=== PATIENT | female | born 1975 | race Caucasian/White ===

== ENCOUNTER 2018-07-16 10:20 | Emergency (ER) | payer MEDICAID ==
[~2018-07-16] VITALS: Ht 162.6 cm; Wt 56.4 kg
[2018-07-16 10:22] VITALS: BP 116/60; PULSE 101; RESP 18; Ht 162.6 cm; Wt 56.4 kg
--- NOTE | 2018-07-16 11:02 | ERD ---
ER Documentation Chief Complaint Chief Complaint fever x 2 days HPI 43-year-old female in her 6 weeks of presents due to complaint of fever and cough for 2 days. Cough is intermittent and nonproductive. States that she took TheraFlu last night but has not taken any treatments today. Denies abdominal pain, dysuria, chest pain, leg swelling or pain, headache, photophobia, rashes, shortness of breath, wheezing, dyspnea, hemoptysis. Denies past medical history. Denies allergies. Denies medications. Denies surgeries. Denies alcohol, tobacco, drug use. ROS All systems reviewed and are negative except as per history of present illness. Medications Home Meds Active Scripts Acetaminophen* (Tylophen*) 500 Mg Capsule, 1 CAP PO Q6H PRN for PAIN AND OR ELEVATED TEMP, #20 CAP Prov:DANNY PAHN 07/16/18 Oseltamivir Phosphate* (Tamiflu*) 75 Mg Capsule, 75 MG PO BID for influenza for 5 Days, CAP Prov:DANNY PHAN 07/16/18 PMhx/Soc Medical and Surgical Hx: pt denies Medical Hx, pt denies Surgical Hx Hx Alcohol Use: No Hx Substance Use: No Hx Tobacco Use: No Smoking Status: Never smoker FmHx Family History: No diabetes, No coronary disease, No other Physical Exam Vitals Vital Signs Date Temp Pulse Resp B/P (MAP) Pulse Ox O2 O2 Flow FiO2 Time Delivery Rate 07/16/18 100.2 101 18 116/60 100 10:22 (78) Physical Exam Const: No acute distress Head: Atraumatic Eyes: Normal Conjunctiva ENT: Normal External Ears, Nose and Mouth. Tonsils are nonerythematous or edematous without exudates bilaterally. Neck: Full range of motion. No meningismus. Resp: Clear to auscultation bilaterally Cardio: Regular rate and rhythm, no murmurs Abd: Soft, non tender, non distended. Normal bowel sounds Skin: No petechiae or rashes Back: No midline or flank tenderness Ext: No cyanosis, or edema. No erythema or tenderness to palpation lower extremities. Neur: Awake and alert Psych: Normal Mood and Affect Result Diagram: 07/16/18 1110 Results 24 hrs Laboratory Tests Test 07/16/18 11:10 07/16/18 11:14 White Blood Count 5.6 10^3/ul Red Blood Count 4.55 10^6/ul Hemoglobin 11.7 g/dl Hematocrit 37.0 % Mean Corpuscular Volume 81.3 fl Mean Corpuscular Hemoglobin 25.7 pg Mean Corpuscular Hemoglobin Concent 31.6 g/dl Red Cell Distribution Width 14.9 % Platelet Count 243 10^3/UL Mean Platelet Volume 10.0 fl Immature Granulocytes % 0.400 % Neutrophils % 79.4 % Lymphocytes % 8.9 % Monocytes % 11.1 % Eosinophils % 0.0 % Basophils % 0.2 % Nucleated Red Blood Cells % 0.0 /100WBC Immature Granulocytes # 0.020 10^3/ul Neutrophils # 4.5 10^3/ul Lymphocytes # 0.5 10^3/ul Monocytes # 0.6 10^3/ul Eosinophils # 0.0 10^3/ul Basophils # 0.0 10^3/ul Nucleated Red Blood Cells # 0.0 10^3/ul Urine Color YELLOW Urine Clarity SLIGHTLY CLOUDY Urine pH 5.0 Urine Specific [place] 1.012 Urine Ketones NEGATIVE mg/dL Urine Nitrite NEGATIVE mg/dL Urine Bilirubin NEGATIVE mg/dL Urine Urobilinogen NEGATIVE mg/dL Urine Leukocyte Esterase NEGATIVE Jimmy/ul Urine Microscopic RBC 3 /HPF Urine Microscopic WBC 2 /HPF Urine Squamous Epithelial Cells FEW /HPF Urine Bacteria FEW /HPF Urine Hemoglobin 2+ mg/dL Urine Glucose NEGATIVE mg/dL Urine Total Protein NEGATIVE mg/dl POC Beta HCG, Qualitative POSITIVE Procedures/MDM 43-year-old female in her 6 weeks of presents due to complaint of fever 2 days. Cough is intermittent and nonproductive. States that she took TheraFlu last night but has not taken any treatments today. Denies abdominal pain, dysuria, chest pain, leg swelling or pain, shortness of breath, wheezing, dyspnea, hemoptysis. CBC was performed and showed no acute infection. Influenza test was positive. I have low suspicion for tubercolosis, pneumonia, pleural effusion, acute heart failure, foreign body aspiration, pulmonary embolism, pneumothorax, sepsis, meningitis, or other emergent etiology. Patients O2 sat is normal and is not having difficulty breathing, therefore patient is fit for discharge. Patient discharged with rx for tamiflu and tylenol and advised to follow up with PMD. Patient discharged with strict ER precautions. All questions answered at discharge. Departure Diagnosis: Primary Impression: Influenza A Condition: Stable DANNY PHAN Jul 16, 2018 11:02
[2018-07-16] MEDS ORDERED: OSEL75CA23 PO (11:36)
[2018-07-16] MEDS ORDERED: ACET500C5 PO (11:37)
== END 2018-07-16 11:44 | disposition home or self-care (01) ==
LOC: FTE 10:20
DX: O99.511 Diseases of the respiratory system complicating pregnancy, first trimester (principal); J10.1 Influenza due to other identified influenza virus with other respiratory manifestations; R50.9 Fever, unspecified; Z3A.01 Less than 8 weeks gestation of pregnancy
CPT/HCPCS: 36415; 81001; 81025; 85025; 87400; Z7502; 99283

== ENCOUNTER 2019-01-29 11:17 | Emergency (ER) | payer MEDICAID ==
[~2019-01-29] VITALS: Ht 162.6 cm; Wt 71.0 kg
[~2019-01-29 11:17] MED LIST: ACET500C5 PO; OSEL75CA23 PO; PNV11TAB PO
[2019-01-29 11:26] VITALS: BP 122/58; PULSE 66; RESP 18; Ht 162.6 cm; Wt 71.0 kg
== END 2019-01-29 12:17 | disposition home or self-care (01) ==
LOC: E/R 11:17
DX: O26.893 Other specified pregnancy related conditions, third trimester (principal); R20.0 Anesthesia of skin; Z3A.36 36 weeks gestation of pregnancy
CPT/HCPCS: 99282